=== PATIENT | female | born 1960 | race Caucasian/White ===

== ENCOUNTER → 2016-08-05 | Outpatient (CLI) | payer OTHER ==
[2016-08-05 11:16] LABS: ALBUMIN 3.8 g/dL (3.4-5.0); CALCIUM 8.5 mg/dL (8.5-10.1); CREATININE 0.6 mg/dL (0.6-1.0); GFR 104.2; POTASSIUM 3.9 mmol/L (3.5-5.1); TOTAL BILIRUBIN 0.7 mg/dL (0.2-1.0); TOTAL PROTEIN 7.6 g/dL (6.4-8.2)
[2016-08-05 11:20] LABS: BASO % 1 % (0-3); EOS # 0.5 x10^3/uL (0.0-0.7); EOS % 6 % (0-3); HEMATOCRIT 39.6 % (36.0-47.0); HEMOGLOBIN 13.2 g/dL (12.0-15.5); LYMPH # 2.3 x10^3/uL (1.0-4.8); LYMPH % 27 % (24-48); MEAN CORPUSCULAR HEMOGLOBIN 32 pg (25-35); MEAN CORPUSCULAR HGB CONC 33 g/dL (31-37); MEAN CORPUSCULAR VOLUME 96 fL (79-100); MONO # 0.6 x10^3/uL (0.0-1.1); MONO % 7 % (0-9); NEUT # 5.1 x10^3uL (1.8-7.7); NEUT % 60 % (31-73); PLATELET COUNT 321 x10^3/uL (140-400); RED BLOOD COUNT 4.14 x10^6/uL (3.50-5.40); RED CELL DISTRIBUTION WIDTH 12.9 % (11.5-14.5); WHITE BLOOD COUNT 8.5 x10^3/uL (4.0-11.0)
--- NOTE | 2016-08-05 11:23 | RAD ---
Exam performed: CT scan of the abdomen and pelvis without contrast. Clinical Indication: Generalized abdominal and flank pain since yesterday. Date of Service: 08/05/16 no previous exams are available for comparison Technique: Contiguous helical acquisitions are obtained through the abdomen and pelvis without IV contrast. Sagittal and coronal reformatted images are obtained and reviewed. CT abdomen and pelvis findings: Linear bibasal atelectasis is seen. Visualized heart is normal. Lack of IV contrast limits evaluation of abdominal viscera, however the liver, spleen and pancreas are normal. Low attenuating subcentimeter nodules in the liver likely cysts. Cholelithiasis. Both adrenal glands and bilateral kidneys are normal in size without hydronephrosis or nephrolithiasis. Aorta is normal in caliber without aneurysm. The small and large bowel loops are nondilated and unremarkable. The visualized portion of the appendix is unremarkable Distal ureters are nondilated. Urinary bladder is decompressed and thick walled. [Uterus is anteverted, no adnexal masses are seen.] No free or focal fluid collections are identified. Mild spondylotic changes. Loss of height of T10 vertebral body suggesting compression fracture. Impression: 1. Cholelithiasis. Evaluation with right upper quadrant ultrasound may be obtained if indicated. 2. Probable hepatic cysts. 3. No convincing evidence of urolithiasis seen. 4. Appendix is normal. 5. Loss of height of T10 vertebral body represents a compression fracture of undetermined age. Correlate clinically and if indicated evaluation with MRI of the thoracolumbar spine may be of additional benefit. PQRS Compliance Statement: One or more of the following individualized dose reduction techniques were utilized for this examination: 1. Automated exposure control 2. Adjustment of the mA and/or kV according to patient size 3. Use of iterative reconstruction technique
== END | disposition home or self-care (01) ==
LOC: CT 10:31
PROVIDERS: ATTEND Nurse Practitioner Family
DX: K80.20 Calculus of gallbladder without cholecystitis without obstruction (principal); K76.89 Other specified diseases of liver; J98.11 Atelectasis
CPT/HCPCS: 36415; 74176; 80053; 82150; 83690; 85027

== ENCOUNTER → 2018-09-17 | Outpatient (CLI) | payer OTHER ==
--- NOTE | 2018-09-17 12:42 | RAD ---
Bone densitometry 09/17/2018 11:00 AM Indication: Mastocytosis Comparison Study: Bone densitometry March 20, 2016. Discussion: Bone Densitometry was performed with dual photon absorption of the lumbar spine and right femoral neck. Lumbar Spine: Bone average density is 0.808g/cm2 for L1-L4. T-Score is -3.1. (Prior measurement -2.8) Right femoral neck:: Bone average density is 0.766g/cm2. T-Score is -2.0. (Prior measurement -2.7) IMPRESSION: Persistent osteoporosis. Bone mineral density in the right femoral neck is mildly improved in the interim. Fracture risk remains high. Continued surveillance recommended. Note: Definitions established by the World Health Organization: Normal: T-score is -1.0 or above. Osteopenia: T-score is between -1.0 and -2.5. Osteoporosis: T-score is -2.5 or below. Electronically signed by: Kyler Abdul MD (09/17/2018 12:39 PM) [id number]
--- NOTE | 2018-09-18 09:14 | RAD ---
DATE: 09/17/2018 EXAM: MAMMO [facility] SCREENING BILATERAL HISTORY: Routine screening COMPARISON: 03/20/2016 This study was interpreted with the benefit of Computerized Aided Detection (CAD). Breast Density: HETERO The breast parenchyma is heterogenously dense, which could reduce sensitivity of mammography. Breast parenchyma level C. FINDINGS: 2-D and 3-D tomosynthesis imaging was performed in CC and MLO projections. A small smooth lymph node type density in the lateral aspect of left breast is unchanged. No new or enlarging breast densities are seen. Benign type calcifications are present. No suspicious microcalcifications have developed. IMPRESSION: There is no mammographic evidence of malignancy in either breast. BI-RADS CATEGORY: 2 BENIGN FINDING(S) RECOMMENDED FOLLOW-UP: 12M 12 MONTH FOLLOW-UP PQRS compliance statement: Patient information was entered into a reminder system with a target due date for the next mammogram. Mammography is a sensitive method for finding small breast cancers, but it does not detect them all and is not a substitute for careful clinical examination. A negative mammogram does not negate a clinically suspicious finding and should not result in delay in biopsying a clinically suspicious abnormality. "Our facility is accredited by the [employer] Mammography Program."
== END | disposition home or self-care (01) ==
LOC: MAMMO 10:19
PROVIDERS: ATTEND Internal Medicine Hematology & Oncology
DX: Z12.31 Encounter for screening mammogram for malignant neoplasm of breast (principal); M81.0 Age-related osteoporosis without current pathological fracture; N64.89 Other specified disorders of breast; D47.09 Other mast cell neoplasms of uncertain behavior; N95.9 Unspecified menopausal and perimenopausal disorder
CPT/HCPCS: 77063; 77067; 77080

== ENCOUNTER → 2020-05-25 | Outpatient (CLI) | payer OTHER ==
--- NOTE | 2020-05-25 09:33 | RAD ---
DATE: 05/25/2020 7:49 AM EXAM: MAMMO [facility] SCREENING BILATERAL HISTORY: Screening COMPARISON: 09/17/2018, 03/20/2016 Bilateral CC and MLO views of the breasts were performed. Bilateral breast tomosynthesis was performed in CC and MLO projections. This study was interpreted with the benefit of Computerized Aided Detection (CAD). FINDINGS: Breast Density: HETERO The breast parenchyma Is heterogeneously dense, which could reduce sensitivity of mammography. Breast parenchyma level C No suspicious masses, microcalcifications or architectural distortion is present to suggest malignancy in either breast. The visualized axillae are unremarkable. IMPRESSION: No mammographic evidence of malignancy. BI-RADS CATEGORY: 1 NEGATIVE RECOMMENDED FOLLOW-UP: 12M 12 MONTH FOLLOW-UP Annual screening mammography is recommended, unless clinically indicated sooner based on symptoms or change in physical exam. PQRS compliance statement: Patient information was entered into a reminder system with a target due date for the next mammogram. Mammography is a sensitive method for finding small breast cancers, but it does not detect them all and is not a substitute for careful clinical examination. A negative mammogram does not negate a clinically suspicious finding and should not result in delay in biopsying a clinically suspicious abnormality. "Our facility is accredited by the [employer] Mammography [employer]."
== END ==
LOC: MAMMO 07:43
PROVIDERS: ATTEND Obstetrics & Gynecology
DX: Z12.31 Encounter for screening mammogram for malignant neoplasm of breast (principal); N64.89 Other specified disorders of breast
CPT/HCPCS: 77063; 77067